=== PATIENT | male | born 1980 | race Caucasian/White ===

== ENCOUNTER 2018-10-06 19:02 | Emergency (ER) | payer OTHER ==
[2018-10-06] MEDS: ACETAMINOPHEN 500 MG TAB PO (19:43)
== END 2018-10-06 21:00 | disposition home or self-care (01) ==
LOC: FTE 19:02
DX: S00.532A Contusion of oral cavity, initial encounter (principal); S49.91XA Unspecified injury of right shoulder and upper arm, initial encounter; S59.901A Unspecified injury of right elbow, initial encounter; S69.91XA Unspecified injury of right wrist, hand and finger(s), initial encounter; S79.911A Unspecified injury of right hip, initial encounter; S89.91XA Unspecified injury of right lower leg, initial encounter; V49.59XA Passenger injured in collision with other motor vehicles in traffic accident, initial encounter; Z87.891 Personal history of nicotine dependence
CPT/HCPCS: 70450; 73030-RT; 73080-RT; 73110-RT; 73502; 73510; 73562; 99284-25